=== PATIENT | female | born 1975 | race African-American/Black ===

== ENCOUNTER 2016-10-06 13:50 | Emergency (ER) | payer OTHER ==
[~2016-10-06] VITALS: Ht 162.6 cm; Wt 83.0 kg
[2016-10-06 14:07] VITALS: BP 110/72
== END 2016-10-07 00:03 | disposition left against medical advice (07) ==
LOC: ER 22:49
DX: R11.2 Nausea with vomiting, unspecified (principal); R42 Dizziness and giddiness; Z53.21 Procedure and treatment not carried out due to patient leaving prior to being seen by health care provider